=== PATIENT | female | born 1935 | race Caucasian/White ===

== ENCOUNTER → 2016-07-02 | Outpatient (CLI) | payer MEDICARE, BC ==
--- NOTE | 2016-07-02 16:15 | DI ---
EXAM: HIP LEFT 2 VIEW LOCATION OF DICTATION: [place] HISTORY: ITS.REASON: M25.552 PAIN IN LEFT HIP COMPARISON: No prior studies available for comparison. FINDINGS: There is mild osteoarthrosis about the left hip joint without malalignment or acute fracture. Mild osteopenia suggested. Mild calcific atherosclerotic disease is noted. 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 .
== END ==
LOC: IMA 13:36
DX: M16.12 Unilateral primary osteoarthritis, left hip (principal); M25.552 Pain in left hip